=== PATIENT | female | born 1950 | race Caucasian/White ===

== ENCOUNTER → 2016-06-21 | Outpatient (CLI) | payer MEDICARE ==
--- NOTE | 2016-06-21 14:03 | REPMRS ---
Patient History The patient states she had a clinical breast exam in Patient is postmenopausal. No known family history of cancer. Benign excisional biopsy of the left breast, 2005. Taking estrogen for 5 years. Digital Woman Screen Mammo: June 21, 2016 - Exam #: [id number] Bilateral CC and MLO view(s) were taken. Technologist: Evelyn Nicole, Technologist Prior study comparison: May 13, 2015, digital woman screen mammo performed at [facility]. May 11, 2014, digital woman screen mammo performed at [facility]. May 09, 2013, digital woman screen mammo performed at [facility]. FINDINGS: The breast tissue is almost entirely fat. There has been no change in the appearance of the mammogram from the prior studies. There is no interval development of dominant mass, architectural distortion, or clustered microcalcification typical of malignancy. ASSESSMENT: BI-RADS/ACR category 1 mammogram. Negative. Recommendation Routine screening mammogram of both breasts in 1 year (for women over age 40). This mammogram was interpreted with the aid of an FDA-approved computer-aided dectection system. Electronically Signed By: Davin Cintron MD 06/21/16 [id number]
== END ==
LOC: M WHC 13:19
PROVIDERS: ATTEND Nurse Practitioner Women's Health
DX: Z12.31 Encounter for screening mammogram for malignant neoplasm of breast (principal); N83.8 Other noninflammatory disorders of ovary, fallopian tube and broad ligament; Z78.0 Asymptomatic menopausal state; Z92.89 Personal history of other medical treatment

== ENCOUNTER → 2016-06-29 | Outpatient (CLI) | payer MEDICARE ==
--- NOTE | 2016-06-29 13:46 | REP ---
Obstetric ultrasound including transabdominal, vaginal and Doppler ultrasound assessment: Comparisons 05/15/2005. The uterus is anteverted and normal size 8.6 x 2.5 of 4.4 cm. On the comparison study there was a 2 cm fibroid. The fibroid is not identified on the study today. The endometrium is not thickened measuring 3.1 mm. The right ovary is normal size measuring 3.5 1.5 x 3.4 cm. Left ovary is normal size measuring 2.9 x 1.3 x 1.8 cm. There are no dominant ovarian masses or cysts. There is vascular flow in both ovaries with the Doppler resistive index of the intraparenchymal arteries on the right measuring 0.65, left 0.66. Impression: Essentially negative pelvic ultrasound. No adnexal cysts or masses are identified. The uterine fibroid identified on the previous study is not identified on the study today. Signed by Phillip Michel MD 06/29/2016 01:38 P
== END ==
LOC: M WHC 08:29
PROVIDERS: ATTEND Nurse Practitioner Women's Health
DX: N83.8 Other noninflammatory disorders of ovary, fallopian tube and broad ligament (principal)

== ENCOUNTER → 2017-08-17 | Outpatient (CLI) | payer MEDICARE | LOC: M WHC 13:32 | DX: Z01.419 Encounter for gynecological examination (general) (routine) without abnormal findings (principal); Z12.31 Encounter for screening mammogram for malignant neoplasm of breast (principal); Z78.0 Asymptomatic menopausal state; M85.88 Other specified disorders of bone density and structure, other site; Z92.89 Personal history of other medical treatment; Z92.23 Personal history of estrogen therapy; Z12.12 Encounter for screening for malignant neoplasm of rectum | CPT/HCPCS: 77067 ==

== ENCOUNTER → 2018-08-20 | Outpatient (CLI) | payer MEDICARE ==
--- NOTE | 2018-08-20 10:54 | REPMRS ---
Patient History The patient states she had a clinical breast exam in 08/2018. Patient is postmenopausal. No known family history of cancer. Benign excisional biopsy of the left breast, 2005. Took estrogen for 7 years. 3D TOMOSYNTHESIS WAS PERFORMED. [facility] lifetime risk for breast cancer is 6.5%. Digital Woman Screen Mammo: August 20, 2018 - Exam #: [id number] Bilateral CC and MLO view(s) were taken. Technologist: Francheska Paris, Technologist Prior study comparison: August 17, 2017, bilateral digital woman screen mammo performed at [facility]. June 21, 2016, digital woman screen mammo performed at [facility]. FINDINGS: There are scattered fibroglandular densities. There has been no change in the appearance of the mammogram from the prior studies. There is a mild amount of residual fibroglandular tissue which is fairly symmetric. There is no interval development of dominant mass, architectural distortion, or clustered microcalcification suggestive of malignancy. Assessment: BI-RADS/ACR category 1 mammogram. Negative Mammogram. Recommendation Routine screening mammogram in 1 year (for women over age 40). This mammogram was interpreted with the aid of an FDA-approved computer-aided dectection system. Electronically Signed By: Phillip Beyer MD 08/20/18 [id number]
== END ==
LOC: M WHC 09:31
PROVIDERS: ATTEND Nurse Practitioner Women's Health
DX: Z12.31 Encounter for screening mammogram for malignant neoplasm of breast (principal); Z78.0 Asymptomatic menopausal state; Z86.018 Personal history of other benign neoplasm; Z92.23 Personal history of estrogen therapy

== ENCOUNTER → 2018-08-20 | Outpatient (REF) | payer MEDICARE ==
[2018-08-27 14:08] LABS: HPV HYBRID CAPTURE II Negative (Negative)
== END ==
LOC: M SFHCWAGY 10:33
PROVIDERS: ATTEND Nurse Practitioner Women's Health
DX: Z12.4 Encounter for screening for malignant neoplasm of cervix (principal)
CPT/HCPCS: 87624; G0123

== ENCOUNTER → 2019-08-22 | Outpatient (CLI) | payer MEDICARE ==
--- NOTE | 2019-08-22 11:10 | REPMRS ---
Patient History The patient states she had a clinical breast exam in August 2019. No known family history of cancer. Benign excisional biopsy of the left breast, 2005. Took estrogen for 7 years. Digital Woman Screen Mammo: August 22, 2019 - Exam #: [id number] Bilateral CC and MLO view(s) were taken. Technologist: Karolyn Thibodeaux, Technologist Prior study comparison: August 20, 2018, bilateral digital woman screen mammo performed at [facility]. August 17, 2017, bilateral digital woman screen mammo performed at [facility]. June 21, 2016, digital woman screen mammo performed at [facility]. FINDINGS: There are scattered fibroglandular densities. The Volpara volumetric breast density category is:B. There has been no change in the appearance of the mammogram from the prior studies. There is a mild amount of scattered fibroglandular density which is fairly symmetric. There is no interval development of dominant mass, architectural distortion, or grouped microcalcification suggestive of malignancy. 3-D tomosynthesis shows no additional findings. Assessment: BI-RADS/ACR category 1 mammogram. Negative Mammogram. Recommendation Routine screening mammogram of both breasts in 1 year (for women over age 40). This patient's Lifetime Breast Cancer Risk is estimated at 6.2 %. This mammogram was interpreted with the aid of an FDA-approved computer-aided dectection system. Electronically Signed By: Davin Cintron MD 08/22/19 [id number]
== END ==
LOC: M WHC 10:04
PROVIDERS: ATTEND Nurse Practitioner Women's Health
DX: Z12.31 Encounter for screening mammogram for malignant neoplasm of breast (principal); M85.88 Other specified disorders of bone density and structure, other site; Z86.018 Personal history of other benign neoplasm; Z92.23 Personal history of estrogen therapy